=== PATIENT | female | born 1995 | race Caucasian/White ===

== ENCOUNTER 2020-10-12 02:31 | Outpatient (CLI) | payer BC, SELFPAY ==
--- NOTE | 2020-10-12 | DI.US_ITS ---
EXAM: US OB 2-3 TRIMESTER CLINICAL HISTORY: SURVEY,Z34.02. TECHNIQUE: Transabdominal obstetrical ultrasound was performed. COMPARISON: No exams were available for comparison FINDINGS: There is a single viable intrauterine gestation with cardiac activity identified-165 bpm. Amniotic fluid: There is a normal amount of amniotic fluid. Placental location: The placenta is anterior grade 1,with no evidence of placenta previa.This is from the tip of the placenta to the internal cervical os is 4 centimetres on today's study. ANATOMY: A 3 vessel umbilical cord is seen. A four-chamber cardiac view was obtained. Right and left ventricular outflow tracts were imaged. There are no obvious abnormalities of the spinal column evident. There is no obvious abnormal ity of the anterior abdominal wall. stomach and urinary bladder are identified and there is no evidence of hydronephrosis. No abnormalities of the upper lip region are identified. No evidence of choroid plexus cysts i n the brain. Dating parameters place this at approximately 20 weeks and 2 days gestational age. BPD measures 20 weeks and 1 day HC measures 20 weeks and 2 days AC measures 20 weeks and 3 days FL measures 20 weeks and 2 days Estimated weight is 347 gm-0 pounds, 12 ounces Fetus is at the 73rd percentile on the Hadlock scale. IMPRESSION:: Single viable intrauterine gestation which is approximately 20 weeks and 2 days gestati onal age, implying an HAKAN of February 27, 2021. There are no obvious anomalies evident on today's study. The placenta is anterior with no evidence of placenta previa. There is a normal amount of amniotic fluid. DATA REPOSITORY:
== END 2020-10-12 02:51 ==
PROVIDERS: PCP Family Medicine; Visit Provider Family Medicine
DX: Z34.92 Encounter for supervision of normal pregnancy, unspecified, second trimester (principal)
CPT/HCPCS: 76805

== ENCOUNTER 2020-12-03 12:14 | Outpatient (CLI) | payer BC, SELFPAY ==
[2020-12-03 12:58] VITALS: BP 109/70; PULSE 88; TEMP 36.4
[2020-12-03 13:02] VITALS: BP 109/70; PULSE 88
[2020-12-03 13:22] VITALS: BP 109/70; PULSE 88; TEMP 36.4
[2020-12-03 13:25] VITALS: BP 109/70; PULSE 88; TEMP 36.4
--- NOTE | 2021-01-02 10:34 | W.OBNST ---
Date of service: 01/02/21 Time of Service: 10:36 NST Evaluation Reason for NST Reasons for Nonstress Test: DECREASED MOVEMENT Gestational Age Gestational Age in Weeks and Days: 27 Weeks and 2Days Test and Monitor Explained Test/Monitor Explained: Test Explained and Monitor Explained Vital Signs Blood Pressure: 109/70 Pulse: 88 Temperature: 97.6 F Urine Results Urine Protein: Negative Urine Ketones: Negative Urine Glucose: Negative Urine Blood: Negative NST Information Date on Monitor: 12/03/20 Time on Monitor: 13:02 Date off Monitor: 12/03/20 Time off Monitor: 13:24 Total Time on Monitor: 22 NST Interventions: PO Hydration NST Evaluation Patient States Movement: Present FHR Baseline: 150 Variability: Moderate 6-25 bpm Accelerations: 15x15 Decelerations: None NST Results: Reactive Note NST Note Note: Pt observed and reported and recorded movement. Reassurance given. NST Reviewed and Verified by: Kristen Garcia
[2021-01-02 10:35] VITALS: BP 109/70; PULSE 88; TEMP 36.4
== END 2020-12-03 13:32 | disposition home or self-care (01) ==
LOC: BCD 12:55 → OBS 12:56
PROVIDERS: PCP Family Medicine; Visit Provider Family Medicine
DX: O36.8130 Decreased fetal movements, third trimester, not applicable or unspecified (principal); Z3A.27 27 weeks gestation of pregnancy
CPT/HCPCS: 59025

== ENCOUNTER 2021-03-03 05:51 | Inpatient (IN) | payer BC, SELFPAY ==
[2021-03-03] VITALS (40 sets, daily range): BP systolic 67–125; BP diastolic 31–77; PULSE 61–139; RESP 14–18; TEMP 36.6–37.1; TEMPC 36.9; O2SAT 94–100; BMI 29.2
[2021-03-03 07:32] LABS: Source Nasal/Nares
[2021-03-03 08:51] LABS: COVID-19 PCR Negative (Negative)
--- NOTE | 2021-03-03 08:55 | HPE_ITS ---
Date of service: 03/03/21 Time of Service: 08:55 Assessment and Plan Assessment and plan (1) : Status: Acute Assessment and plan: 25y in active labor, Rh- recieved rhogam at 28 weeks. Uncomplicated , labor began at 12am, membranes intact. Anticipate uncomplicated . She is requesting epidural so will begin process for that. She is up and walking in the mean time. Qualifiers: Weeks of gestation: 40 weeks Qualified Code(s): Z3A.40 - 40 weeks ge station of (2) Rh negative state in antepartum period: Status: Acute Assessment and plan: see above OB-HPI Labor/Delivery History of Present Illness Reason for Visit: RULE OUT LABOR Chief Complaint: Uterine Contractions. HAKAN Calculator Estimated Delivery Date Method Current WG Current Estimate 03/02/21 LMP (Certain) 40w 1d History of Present Expected Delivery Route/Plan 25y with GBS- Rh- RI HepB- at 40.1w with uncomplicated . Labor began at approximately midnight with contractions every 8-10 min, now at every 3-4min. Cervix yesterday in clinic was 1.5/30/-2 and has now progressed to 4- 5cm/80/0. She is getting uncomfortable and is requesting epidural. Anticipate Review of Systems All systems reviewed & are unremarkable except as noted in HPI and below PFSH Social History Smoking risk assessment performed?: No History History 1 Para 0 Hx # Term Pregnancies Multiple births Hx # Pregnancies Ectopic pregnancies AB induced Hx Number of Living Children AB spontaneous Meds Allergies and Home Medications Allergies Allergy/AdvReac Type Severity Reaction Status Date / Time ethinyl estradiol Allergy Mild Verified 03/03/21 09:03 [From Aviane] levonorgestrel [From Aviane] Allergy Mild Verified 03/03/21 09:03 Exam Physical Exam Vital signs: Temp Pulse Resp BP Pulse Ox 36.8 C 86 14 99/65 L 98 03/03/21 07:37 03/03/21 07:37 03/03/21 07:37 03/03/21 07:37 03/03/21 06:17 Detailed Labor and Delivery Exam Dilation: 4.5 Effacement (%): 80 station: 0 Cervix position: anterior Consistency: soft Sandoval Score: Cervical Points Exam 0 1 2 3 Dilation Closed 1-2cm 3-4 cm 5-6cm Effacement 0-30% 40-50% 60-70% 80% Consistency Firm Medium Soft Station -3 -2 -1,0 +1,+2 Position Posterior Mid Anterior SANDOVAL Score(Cervical Ripeness Score): 11 Amniotic Membrane Status: Intact Monitor Mode: External Contraction Frequency(min): q3-4 Contraction Duration(sec): 60 Contraction Intensity: Mild/Moderate Fetus A Heart Rate Baseline: 150 Monitor Accelerations: 15 X 15 Monitor Decelerations: None Variability: Moderate (6-25 BPM) Presentation: Cephalic Categories: Category I Assessment Note: Category 1, reactive HEENT Exam HEENT Exam: Normal Respiratory Exam Respiratory Exam: Normal Cardiovascular Exam Cardiovascular Exam: Normal Abdominal Exam Abdominal Exam: Normal Neurological Exam Neurological Exam: Normal Results Results Group Beta Strep: Negative Blood Type: O- Rubella Status: Immune Varicella Immunity: Not Tested Risk Assessment Risk for Shoulder Dystocia Historical/Initial OB: NEGATIVE FOR: Pelvic Abnormality, Pre- BMI>30, Previous Shoulder Dystocia or Previous Macrosomia 40 Weeks: NEGATIVE FOR: EFW> 4500 gms, Maternal Weight Gain >40lb or Post Dates Increased Risk?: No Risk for Pre-Eclampsia Daily Dose ASA Indicated: No Yes, if one or more: NEGATIVE FOR: Hx Pre-E/Gest HTN, Chronic HTN, Multiple Gestation, Pre-gestational DM, Renal Disease, Systemic Lupus or APA Syndrome Yes, if 2 or more: POSITIVE FOR: Nulliparity; NEGATIVE FOR: Age>= 35 yrs, >10yr btwn pregnancies, BMI>30, ethinicty, Mother/Sister w/ Pre-E or Previous IUGR Risk for Post- Hemorrhage Initial: NEGATIVE FOR: Multiple Gestation, Previous PPH, Known Clotting Deficiency, Grand Multiparity or Anticoagulation At Risk?: No Counseled re: Active Management: Yes Risks Reviewed Risks Reviewed Upon Admission: Yes
[2021-03-03] MEDS: Lactated Ringers 500 ML IV (09:15)
[2021-03-03 09:22] LABS: HGB 13.2 g/dL (11.2-15.7); MCH 30.6 pg (27.0-33.0); MCHC 34.7 % (32.0-36.0); MCV 88.2 fL (80-95); MPV 10.1 fL (8.0-11.0); Platelet Count 165 10^3/uL (130-400); RBC 4.31 10^6/uL (3.93-5.22); RDW 12.2 % (11.7-14.6); RDW-SD 39.6 fL; WBC 14.99 10^3/uL (4.4-10.8)
[2021-03-03] MEDS: FentaNYL/ROPIvacaine 2 mcg/ml and 0.1% 200 ML CADD Cassette EP (10:43)
--- NOTE | 2021-03-03 10:50 | W.ANESPRE ---
General Info Date of Service Date Performed: 03/03/21 Height: 5 ft 1 in Weight: 70.307 kg Body Mass Index (BMI): 29.2 Meds Allergies and Home Medications Allergies Allergy/AdvReac Type Severity Reaction Status Date / Time ethinyl estradiol Allergy Mild Verified 03/03/21 09:03 [From Aviane] levonorgestrel [From Aviane] Allergy Mild Verified 03/03/21 09:03 Current Visit Medications: Current Medications Generic Name Dose Route Start Last Admin Trade Name Freq PRN Reason Stop Dose Admin Diphenhydramine HCl 25 mg 03/03/21 10:48 Diphenhydramine 50 Mg/Ml Vial IVP Q6H PRN PRN Persistent pruritis face/trunk Ephedrine Sulfate 5 mg 03/03/21 10:48 Ephedrine 50 Mg/Ml Vial IVP DIRECTED PRN Fentanyl/Ropivacaine 200 ml 03/03/21 09:15 03/03/21 10:43 Fentanyl/Ropivacaine 2 Mcg/Ml And 0.1% 200 Ml Cadd Cassette EP 200 ml DIRECTED [place] Administration Fentanyl/Ropivacaine 200 ml 03/03/21 11:00 Fentanyl/Ropivacaine 2 Mcg/Ml And 0.1% 200 Ml Cadd [place]ette EP DIRECTED [place] Sodium Chloride 500 mls @ 0 mls/hr 03/03/21 08:52 Saline 500ml Bag IV PRN PRN As Directed Ringer's Solution 1,000 mls @ 125 mls/hr 03/03/21 09:00 IV INFUSION [place] Ringer's Solution 250 mls @ 500 mls/hr 03/03/21 10:48 IV 03/03/21 11:17 BOLUS ONE Naloxone HCl 2 mg/ Sodium 500 mls @ 8.788 mls/hr 03/03/21 10:48 Chloride IV INFUSION PRN pruritis 0.5 MCG/KG/HR Nalbuphine HCl 5 mg/ Sodium 50.5 mls @ 100 mls/hr 03/03/21 10:48 Chloride IVPB Q3H PRN PRN Pruritis IV Miscellaneous Supplies 1 each 03/03/21 09:00 Iv Access IV DIRECTED [place] Miscellaneous 0 each 03/03/21 10:48 Patch Removal TD 03/03/21 10:49 DIRECTED ONE Naloxone HCl 0 mg 03/03/21 10:48 Naloxone 0.4 Mg/Ml Vial IVP DIRECTED PRN Ondansetron HCl 4 mg 03/03/21 10:48 Ondansetron 4 Mg/2 Ml Vial IVP Q6H PRN PRN Nausea Scopolamine HBr 1.5 mg 03/03/21 10:48 Scopolamine 1 Mg/3 Days Patch TD 03/03/21 10:49 NOW ONE Sodium Chloride 0 ml 03/03/21 08:52 Normal Saline Flush 10 Ml Syr IVP PRN PRN PFSH Active Problems Active Problems: Problem Status Onset Code Rh negative state in antepartum period O26.899, Z67.91 Z34.90 Prental History History 1 Para 0 Hx # Term Pregnancies Multiple births Hx # Pregnancies Ectopic pregnancies AB induced Hx Number of Living Children AB spontaneous Vital Signs and Lab Results Vital Signs Most Recent Vital Signs in EMR: Most Recent Vital Signs Temp Pulse Resp BP Pulse Ox 36.8 C 66 14 101/58 L 100 03/03/21 07:37 03/03/21 10:48 03/03/21 07:37 03/03/21 10:45 03/03/21 10:48 Lab Results Result Diagrams: 03/03/21 09:12 Blood Type / Crossmatch: Patient ABO/Rh O Negative 03/03/21 09:12 03/03/21 Antibody Screen Positive 03/03/21 09:12 03/03/21 Complete Blood Count: White Blood Count 14.99 10^3/uL (4.4-10.8) H 03/03/21 09:12 03/03/21 Red Blood Count 4.31 10^6/uL (3.93-5.22) 03/03/21 09:12 03/03/21 Hemoglobin 13.2 g/dL (11.2-15.7) 03/03/21 09:12 03/03/21 Hematocrit 38.0 % (36.0-46.0) 03/03/21 09:12 03/03/21 Platelet Count 165 10^3/uL (130-400) 03/03/21 09:12 03/03/21 Complete Metabolic Panel: No Data to Display Liver Function Panel: No Data to Display Coagulation Panel: No Data to Display Cardiac Panel: No Data to Display Arterial Blood Gas: No Data to Display Venous Blood Gas: No Data to Display Pancreas Panel: No Data to Display Thyroid Panel: No Data to Display Infectious Disease: Coronavirus (COVID-19)(PCR) Negative (Negative) 03/03/21 07:24 03/03/21 Coronavirus 2019 Source Nasal/nares 03/03/21 07:24 03/03/21 Blood Cultures: No Data to Display Toxicology Panel: No Data to Display Panel: No Data to Display Anesthesia Assessment and Plan Anesthesia History Personal History: No History of Anesthesia Complications Family History: No Family History of Anesthesia Complications Exercise Tolerance Exercise Tolerance: Metabolic Equivalents>4 Pertinent Negatives Pertinent Negatives: No Symptoms of GERD Cardiac & Pulmonary Exam Cardiac Exam: Normal S1/S2 Heart Sounds Pulmonary Exam: Clear Bilateral Breath Sounds Airway Exam Known Difficult Airway: No Mallampati Class: 2 Mouth Opening: Normal (> 3cm) Thyromental Distance: Greater than 3 cm Neck Range of Motion: Full ROM Neck Circumference: Normal Teeth Condition: Normal Dentition ASA Classification ASA Score: ASA 2 Emergency Case?: No NPO Status NPO Status: NPO Clears >2 hours, Solids >8 hours Status Status: Per Patient Anesthesia Plan Resuscitation Status: Full Code Anesthesia Technique: Epidural Anesthesia Airway Planned: Natural Airway Pain Management: Surgeon and patient request nerve block Monitors Used: Standard Monitors
--- NOTE | 2021-03-03 10:50 | W.ANESNEU ---
Epidural/Spinal Catheter Date Performed: 03/03/21 Procedure Start: 10:18 Procedure Stop: 10:32 Requesting Provider: Hernán Mckeon Procedure Location: Obstetrics (303) Reason Performed: Labor Epidural Standard Monitors Applied: Blood Pressure and SpO2 Patient Position: Sitting Sedation Given (Indicate Dose Given): No Sedation given Patient Mental Status: Awake Sterility: Hand Hygiene, Surgical Cap, Surgical Mask, Sterile Gloves, Sterile Drape/Sheet and Chlorhexidine Procedure Location: L3-L4 Interspace Epidural Needle: Tuohy 17 Guage Needle Length: 3.5 Inch Needle Approach: Midline Epidural Procedure: Skin Prepped, 1% Lidocaine to skin and subcutaneous tissue with 25G needle, Tuohy Needle placed, RODRÍGUEZ to Saline Used, Epidural Catheter Placed, Negative Heme and Negative CSF Flow Catheter Placed?: Catheter Placed Test Dose (Indicate Dose Given): 3ml 1.5% Lidocaine with 1:200K Epinephrine Given and Negative Test Dose Loss of Resistance Depth (cm): 8 Catheter depth at skin (cm): 13 Dressing: Sorbaview Dressing Placed, Mastisol Used and Dressing reinforced with Tape Epidural Provider Bolus (Indicate Dose Given): None Given Additives (Indicate Dose Given ): None Infusion Medication: Medication Infusion Began Medication Infusion: Ropivacaine 0.1% with Fentanyl 2mcg/ml Maintenance Infusion Rate (ml/hour): 10 PCEA Bolus Dose (ml): 5 Block Level: T10 Paresthesia: Right Paresthesia Duration: Transient Ultrasound: Not Used Number of Attempts (See previous attempts in note section): 1 Procedure Tolerated: Patient tolerated well and Complications Encountered (Slight hypotension, corrected by laying supine) Procedure Outcome: Successful Performed By: Alli Reyes
--- NOTE | 2021-03-03 10:54 | W.PM.OBNL1 ---
Date of service: 03/03/21 Time of Service: 10:54 Pelvic Exam Dilation: 5 Effacement (%): 80 station: 0 Cervix Position: anterior Consistency: soft Vaginal Exam Presentation: Cephalic Contractions Monitor Mode: External Contraction Frequency(min): 5 Contraction Duration(sec): 60 Intensity: Mild/Moderate Fetus A Monitor: External (US) Heart Rate Baseline: 140 Presentation: Cephalic Variability: Moderate (6-25 BPM) Categories: Category I FHR Rhythm: Regular Characteristics: Normal Accelerations: 15 X 15 Decelerations: None Amniotic Membrane Status: Intact Assessment and Plan Assessment and plan (1) : Status: Acute Assessment and plan: Doing well, progressing slowly. Epidural in place and effective. Continue present management. Qualifiers: Weeks of gestation: 40 weeks Qualified Code(s): Z3A.40 - 40 weeks gestation of Objective Abnormal lab results 03/03/21 Range/Units 09:12 WBC 14.99 H (4.4-10.8) 10^3/uL Temp Pulse Resp BP Pulse Ox 36.8 C 69 14 97/55 L 100 03/03/21 07:37 03/03/21 10:49 03/03/21 07:37 03/03/21 10:49 03/03/21 10:48 Laboratory Results WBC 14.99 10^3/uL (4.4-10.8) H 03/03/21 09:12 RBC 4.31 10^6/uL (3.93-5.22) 03/03/21 09:12 Hgb 13.2 g/dL (11.2-15.7) 03/03/21 09:12 Hct 38.0 % (36.0-46.0) 03/03/21 09:12 MCV 88.2 fL (80-95) 03/03/21 09:12 MCH 30.6 pg (27.0-33.0) 03/03/21 09:12 MCHC 34.7 % (32.0-36.0) 03/03/21 09:12 RDW 12.2 % (11.7-14.6) 03/03/21 09:12 Plt Count 165 10^3/uL (130-400) 03/03/21 09:12 MPV 10.1 fL (8.0-11.0) 03/03/21 09:12 COVID-19 Source Nasal/nares 03/03/21 07:24 SARS-CoV-2 (PCR) Negative (Negative) 03/03/21 07:24 Patient ABO/Rh O Negative 03/03/21 09:12 Antibody Screen Positive 03/03/21 09:12 Subjective Patient Reports: No new Complaints Interval history since last seen: Leeann is doing well. She got her epidural and pain is now well controlled. She did have some dizziness with epidural but BP stable, symptoms now resolved. Interventions Pain Management Interventions: Epidural . Results Hemoglobin/Hematocrit: Hgb 13.2 g/dL (11.2-15.7) 03/03/21 09:12 Hct 38.0 % (36.0-46.0) 03/03/21 09:12 Abnormal Lab Findings: Abnormal Labs 03/03/21 09:12 WBC 14.99 H
--- NOTE | 2021-03-03 11:54 | W.PM.OBNL1 ---
Date of service: 03/03/21 Time of Service: 11:54 Pelvic Exam Dilation: 7 Effacement (%): 80 station: 0 Cervix Position: anterior Consistency: soft Vaginal Exam Presentation: Cephalic Contractions Monitor Mode: External Contraction Frequency(min): 5 Contraction Duration(sec): 60 Intensity: Moderate/Strong Fetus A Monitor: External (US) Heart Rate Baseline: 140 Presentation: Cephalic Variability: Moderate (6-25 BPM) Categories: Category I FHR Rhythm: Regular Characteristics: Normal Accelerations: 15 X 15 Decelerations: None Amniotic Membrane Status: Ruptured Assessment Note: Category 1, very active. AROM performed with clear fluid. Assessment and Plan Assessment and plan (1) : Status: Acute Assessment and plan: Doing well, making good progress. AROM performed with clear fluid. Epidural working well. Continue present management. Qualifiers: Weeks of gestation: 40 weeks Qualified Code(s): Z3A.40 - 40 weeks gestation of Objective Abnormal lab results 03/03/21 Range/Units 09:12 WBC 14.99 H (4.4-10.8) 10^3/uL Temp Pulse Resp BP Pulse Ox 36.8 C 65 14 104/61 100 03/03/21 07:37 03/03/21 11:35 03/03/21 07:37 03/03/21 11:35 03/03/21 10:48 Laboratory Results WBC 14.99 10^3/uL (4.4-10.8) H 03/03/21 09:12 RBC 4.31 10^6/uL (3.93-5.22) 03/03/21 09:12 Hgb 13.2 g/dL (11.2-15.7) 03/03/21 09:12 Hct 38.0 % (36.0-46.0) 03/03/21 09:12 MCV 88.2 fL (80-95) 03/03/21 09:12 MCH 30.6 pg (27.0-33.0) 03/03/21 09:12 MCHC 34.7 % (32.0-36.0) 03/03/21 09:12 RDW 12.2 % (11.7-14.6) 03/03/21 09:12 Plt Count 165 10^3/uL (130-400) 03/03/21 09:12 MPV 10.1 fL (8.0-11.0) 03/03/21 09:12 COVID-19 Source Nasal/nares 03/03/21 07:24 SARS-CoV-2 (PCR) Negative (Negative) 03/03/21 07:24 Patient ABO/Rh O Negative 03/03/21 09:12 Antibody Screen Positive 03/03/21 09:12 Antibody Identification Anti-D 03/03/21 09:12 Subjective Patient Reports: New Complaints Interval history since last seen: Leeann is having some nausea but otherwise doing well. Clear fluids helpful. Results Hemoglobin/Hematocrit: Hgb 13.2 g/dL (11.2-15.7) 03/03/21 09:12 Hct 38.0 % (36.0-46.0) 03/03/21 09:12 Abnormal Lab Findings: Abnormal Labs 03/03/21 09:12 WBC 14.99 H
--- NOTE | 2021-03-03 13:53 | W.PM.OBNL1 ---
Date of service: 03/03/21 Time of Service: 13:53 Pelvic Exam Dilation: 8 Effacement (%): 90 station: 0 Cervix Position: anterior Consistency: soft Vaginal Exam Presentation: Cephalic Contractions Monitor Mode: External Contraction Frequency(min): 5 Contraction Duration(sec): 60 Intensity: Moderate Fetus A Monitor: External (US) Heart Rate Baseline: 140 Presentation: Cephalic Variability: Moderate (6-25 BPM) Categories: Category I FHR Rhythm: Regular Characteristics: Normal Accelerations: 15 X 15 Decelerations: None Amniotic Membrane Status: Ruptured Assessment and Plan Assessment and plan (1) : Status: Acute Assessment and plan: Doing well, progressing as expected. Epidural has switched sides,but still effective. Continue present management FHT category 1, reactive. Qualifiers: Weeks of gestation: 40 weeks Qualified Code(s): Z3A.40 - 40 weeks gestation of Objective Abnormal lab results 03/03/21 Range/Units 09:12 WBC 14.99 H (4.4-10.8) 10^3/uL Temp Pulse Resp BP Pulse Ox 36.8 C 65 14 104/61 100 03/03/21 07:37 03/03/21 11:35 03/03/21 07:37 03/03/21 11:35 03/03/21 10:48 Laboratory Results WBC 14.99 10^3/uL (4.4-10.8) H 03/03/21 09:12 RBC 4.31 10^6/uL (3.93-5.22) 03/03/21 09:12 Hgb 13.2 g/dL (11.2-15.7) 03/03/21 09:12 Hct 38.0 % (36.0-46.0) 03/03/21 09:12 MCV 88.2 fL (80-95) 03/03/21 09:12 MCH 30.6 pg (27.0-33.0) 03/03/21 09:12 MCHC 34.7 % (32.0-36.0) 03/03/21 09:12 RDW 12.2 % (11.7-14.6) 03/03/21 09:12 Plt Count 165 10^3/uL (130-400) 03/03/21 09:12 MPV 10.1 fL (8.0-11.0) 03/03/21 09:12 COVID-19 Source Nasal/nares 03/03/21 07:24 SARS-CoV-2 (PCR) Negative (Negative) 03/03/21 07:24 Patient ABO/Rh O Negative 03/03/21 09:12 Antibody Screen Positive 03/03/21 09:12 Antibody Identification Anti-D 03/03/21 09:12 Subjective Patient Reports: No new Complaints Results Hemoglobin/Hematocrit: Hgb 13.2 g/dL (11.2-15.7) 03/03/21 09:12 Hct 38.0 % (36.0-46.0) 03/03/21 09:12 Abnormal Lab Findings: Abnormal Labs 03/03/21 09:12 WBC 14.99 H
[2021-03-03] MEDS: Lactated Ringers 1,000 ML 125 ML IV (13:56)
[2021-03-03] MEDS: Oxytocin/Normal Saline 30 UNIT/500 ML BAG 95 UNITS IV (17:41)
--- NOTE | 2021-03-03 17:57 | W.ANESPOSTOP ---
Postoperative Evaluation Date, Time and Location Date Performed: 03/03/21 Time Performed: 17:57 Patient Location: Obstetrics Vital Signs Most Recent Imported Vital Signs: Most Recent Vital Signs Temp Pulse Resp BP Pulse Ox 36.7 C 139 H 16 107/69 100 03/03/21 15:31 03/03/21 17:43 03/03/21 15:31 03/03/21 17:43 03/03/21 10:48 Most Recent Manually Entered Vital Signs: Adult Blood Pressure: 111/56 Heart Rate: 111 Respirations: 16 Oxygen Saturation (%): 98 Temperature (C): 36.9 C Pain Score (0-10 Scale): 0 Pain Score Most Recent Pain Score: Most Recent Pain Score Pain Level [Lower Abdomen] 0 03/03/21 15:19 Assessment Mental Status: Awake (Alert & Oriented to Patient Baseline) Airway and Respiratory Function: Patent airway with normal (patient baseline) respiratory exam Cardiovascular Function: Hemodynamically Stable Hydration Status: Adequately Hydrated Nausea & Vomiting: No Nausea or Vomiting Pain: Pt. Denies Any Pain Peripheral Nerve Block: Other (Epidural infusion discontinued and appropriatley resolving )
--- NOTE | 2021-03-03 18:21 | OBVDS_ITS ---
Date of service: 03/03/21 Time of Service: 18:21 OB Labor/ Delivery Information Baby A Delivery Delivery Method: Spontaneaous Presentation: Cephalic Cephalic Position: Vertex Vertex Position: Left Occipital Anterior Breech Position: N/A Cord Description-Baby A: 3 Vessels Amniotic Fluid: Clear Delivery Outcome: Liveborn Infant Transferred: Remains with Mother Note: 25y [id number] sp with term male infant, RI Rh- GBS-. Uncomplicated pre gnancy and labor. She progressed well with category 1 strip throughout. Short second stage with strong epidural. Baby decended quickly and delivered RENATE. Vigorous on the perineum with apgars of 9 and 10. He was placed immediately on moms chest. Cord was clamped after one minute and cut by dad. Placenta delivered spontaneously after 4 minutes. Due to the speed of babies decent, she did sustain a 4th degree laceration. This was kindly repaired by Dr Chavez, see separate note. Mom is otherwise doing very well. Would like to breastfeed. History of breast reduction, so she is aware this may present a problem but she was able to express colostrum already. Anticipate routine post care. Discussed stool softeners due to 4th degree. Labor/Delivery Information Number of Babies in Womb: 1 Steroids Given: None Reason Steroids Not Administered: N/A Group Beta Strep: Negative Rubella Status: Immune Blood Type: O- Varicella Immunity: Not Tested Medication in Delivery: epidural Born En Route: No Maternal Complications: None Shoulder Dystocia: No Stages of Labor Complete Dilatation Date: 03/03/21 Complete Dilatation Time: 17:13 Delivery Date-Baby A: 03/03/21 Delivery Time-Baby A: 17:37 Labor Stage 2 Duration: 24 minutes Placenta Delivery Date-Baby A: 03/03/21 Placenta Delivery Time-Baby A: 17:41 Labor-Stage 3 Duration: 4 minutes Placenta Cultured: No Placenta Status: Delivered Baby A Infant Gender: Male Gestational Status: Term (39-41.6 wks) Gestational Age in Weeks/Days: 40 Weeks and 1 Days Score-1 Minute Interval(Baby A) Heart Rate-1 minute: 100 BPM or Greater Respiratory Effort- 1 minute: Spontaneous/Strong Cry Muscle Tone-1 minute: Active Movement Reflex Response-1 minute: Prompt Response Color-1 minute: Bluish Hands or Feet Total Score-1 minute: 9 Score-5 Minute Interval(Baby A) Heart Rate- 5 minute: 100 BPM or Greater Respiratory Effort-5 minute: Spontaneous/Strong Cry Muscle Tone-5 minute: Active Movement Reflex Response-5 minute: Prompt Response Color-5 minute: Seffner/No Cyanosis Total Score- 5 minute: 10 Interventions Repair of Laceration Laceration Extension: Fourth Degree . Sponge Count Correct: Yes , Sharp Count Correct: Yes . Laceration Repair Note: please see note by Dr Chavez who performed repair.
--- NOTE | 2021-03-03 18:34 | OBCE_ITS ---
Date of service: 03/03/21 Time of Service: 18:34 History of Present Illness History of Present Illness Chief Complaint: Need for repair post Consults Consult date: 03/03/21 Requesting physician: Hernán Mckeon [facility] Social History Smoking/Tobacco Use Status: Never Smoking risk assessment performed?: Yes Alcohol Intake: never Substance use type: does not use Do you feel safe at home: Yes Do you feel safe in your relationship?: Yes History History 1 Para 0 Hx # Term Pregnancies Multiple births Hx # Pregnancies Ectopic pregnancies AB induced Hx Number of Living Children AB spontaneous Results Last Vital Signs Temp 98.2 F 03/03/21 17:59 Pulse 131 H 03/03/21 18:28 Resp 16 03/03/21 17:59 BP 94/56 L 03/03/21 18:28 Pulse Ox 100 03/03/21 10:48 Labs Result diagrams: 03/03/21 09:12 Labs: Laboratory Results - last 24 hr 03/03/21 03/03/21 03/03/21 07:24 09:12 09:12 WBC 14.99 H RBC 4.31 Hgb 13.2 Hct 38.0 MCV 88.2 MCH 30.6 MCHC 34.7 RDW 12.2 Plt Count 165 MPV 10.1 COVID-19 Source Nasal/nares SARS-CoV-2 (PCR) Negative Patient ABO/Rh O Negative Antibody Screen Positive Antibody Identification Anti-D Laceration Repair Procedure performed by: Robyn Chavez Explained risks and benefits to parent: Yes Informed consent given: Yes Location: 4th degree perineal laceration Sedation: No Anesthesia: other (epidural in place) Patient tolerated procedure: well Text: Kindly asked to evaluate the vaginal laceration after normal spontaneous vaginal delivery. Patient had dense epidural with good pain contr ol. On examination was found to have 1/4 degree perineal laceration. This was repaired in a standard fashion. Initial approximation of the perineal body was performed with 3-0 Vicryl suture in a systematic fashion around the musculature. The rectal mucosa was then reapproximated with 4-0 Vicryl suture in a subcuticular fashion the remainder of the repair was performed in the usual sterile fashion. Approximation was well achieved hemostasis was noted. On inspection there was noted to be a small superficial right first-degree labial laceration which was hemostatic and not repaired. Sponge lap and needle counts were correct. Patient tolerated procedure without difficulty. Ice pack was placed on the perineum.
[2021-03-03] MEDS: Docusate Sodium 100 MG CAP PO (20:30)
--- NOTE | 2021-03-03 23:01 | NUR.NOTE ---
at approximately 2212 pt requesting to get up to bathroom for the second time since delivery @1737. Pt BP 96/60 and HR 130 with pt sitting at bedside. Pt stated she felt good and really wanted to get out of bed. RN called second RN to bedside. After a minute of dangling feet off bed, pt stated she was ready to stand up. Pt walked slowly to bathroom with 2 RN assisting her. Once in the bathroom pt stated she was dizzy and proceeded to lose consciousness. 2 RN slowly assisted pt to the floor in sitting position. Approximately 2 seconds later pt regained consciousness. Once pt conscious, 1 RN stayed with pt while 2nd RN paged nursing production supervisor trainee to unit, as well as left a message with MD. Once production supervisor trainee on floor, 3 RNs able to get pt in wheelchair and back in bed. When at bedside RN checked BP while pt supine 107/68, HR 85. RN had pt stand up and checked bp 67/31 and HR 138. Pt fundus was displaced to the right upon exam. RN called MD Mckeon again at approx 2240 and gave verbal report on situation. RN began bolus of 2nd bag of pitocin and started a 500cc bolus of LR per Md verbal order. RN also placed garcia catheter upon starting fluids. Once garcia was placed, large amounts of clear urine began to fill the bag, RN called MD Mckeon with update on output. RN stopped LR bolus at 2244 and slowed pitocin rate to 95ml/hr. Garcia emptied for 900cc. Pt stable at this time. Nursing Note:
[2021-03-03] MEDS: Acetaminophen 325 MG TAB 650 MG PO (23:39)
[2021-03-03] MEDS: Ibuprofen 600 MG TAB PO (23:39)
[2021-03-04] MEDS: Normal Saline Flush 10 ML SYR IVP (01:40)
[2021-03-04 05:11] VITALS: BP 106/64; PULSE 84; RESP 16; TEMP 36.8; O2SAT 97
[2021-03-04 07:44] LABS: MCHC 35.1 % (32.0-36.0); MCV 88.4 fL (80-95); MPV 10.4 fL (8.0-11.0); Platelet Count 174 10^3/uL (130-400); RBC 3.03 10^6/uL (3.93-5.22); RDW 12.4 % (11.7-14.6); RDW-SD 39.8 fL; WBC 20.66 10^3/uL (4.4-10.8)
[2021-03-04] MEDS: Ibuprofen 600 MG TAB PO ×3 (07:47→23:12)
[2021-03-04] MEDS: Acetaminophen 325 MG TAB 650 MG PO ×4 (07:47→23:12)
[2021-03-04 07:56] LABS: HCT 26.8 % (36.0-46.0); HGB 9.4 g/dL (11.2-15.7)
[2021-03-04 08:15] VITALS: BP 103/66; PULSE 106; RESP 16; TEMP 36.5; O2SAT 97
--- NOTE | 2021-03-04 09:32 | W.PM.OBPNV1 ---
Date of service: 03/04/21 Time of Service: 09:32 Assessment and Plan Assessment and plan (1) Term delivered: Status: Acute Assessment and plan: 25y [id number] sp with 4th degree laceration doing well on PPD 1. She did have significant orthostatic hypotension last night with a syncopal episode. Uterus was at umbilicus and deviated to the right, bladder full. Sweet was placed and a second dose of pitocin administered with additional IV fluids. This did improve her BP and symptoms. She feels back to normal this morning. Is voiding, passing flatus. Working on nursing. Will work with today. Baby was Rh+ so Leeann will receive Rhogam today. Will do BID colace due to 4th degree and add Iron due to anemia. Otherwise routine post care. Anticipate DC home tomorrow. (2) anemia: Status: Acute Assessment and plan: see above (3) Syncope: Status: Chronic Assessment and plan: see above Qualifiers: Syncope type: vasovagal syncope Qualified Code(s): R55 - Syncope and collapse (4) Rh negative state in antepartum period: Status: Acute Assessment and plan: see above Subjective Subjective Interval history: Leeann struggled with dizziness and sycope last night. Sweet was placed and got 800cc out when uterus was deviated to the right. LR bolus and second bag of pitocin administered. She did feel better after that and feels significantly better this morning. Hemoglobin has dropped from 13 to 9 this morning. Patient comments: Pain well controlled, Tolerating diet and Flatus present Norphlet baby status: Doing well, Nursing well (some difficulty with latch) and Strong Bonding Observed feeding status: Exclusively breast feeding Exam Physical Exam Vital signs: Temp Pulse Resp BP Pulse Ox 36.5 C 106 H 16 103/66 97 03/04/21 08:15 03/04/21 08:15 03/04/21 08:15 03/04/21 08:15 03/04/21 08:15 Vital Signs Reviewed: Yes Constitutional Constitutional: no acute distress HEENT Exam HEENT Exam: Normal Respiratory Exam Respiratory Exam: Normal Cardiovascular Exam Cardiovascular Exam: Normal Fundal Exam Fundus: Below Umbilicus and Firm Extremities Exam Extremity Exam: Normal Neurological Exam Neurological Exam: Normal Psychiatric Exam Psychiatric Exam: Normal Results Hemoglobin/Hematocrit: Hgb 9.4 g/dL (11.2-15.7) L D 03/04/21 06:45 Hct 26.8 % (36.0-46.0) L D 03/04/21 06:45 Abnormal Lab Findings: Abnormal Labs 03/03/21 03/04/21 09:12 06:45 WBC 14.99 H 20.66 H D RBC 3.03 L Hgb 9.4 L D Hct 26.8 L D
[2021-03-04] MEDS: Ferrous Sulfate 325 MG TAB PO (10:29)
[2021-03-04] MEDS: Docusate Sodium 100 MG CAP PO (10:29)
[2021-03-04 20:16] VITALS: BP 101/64; PULSE 95; RESP 18; TEMP 36.6; O2SAT 98
[2021-03-05] MEDS: Acetaminophen 325 MG TAB 650 MG PO (08:01)
[2021-03-05] MEDS: Ibuprofen 600 MG TAB PO (08:02)
[2021-03-05] MEDS: Ferrous Sulfate 325 MG TAB PO (08:02)
[2021-03-05] MEDS: Docusate Sodium 100 MG CAP PO (08:02)
[2021-03-05 08:08] VITALS: BP 100/63; PULSE 95; RESP 18; TEMP 36.5; O2SAT 98
--- NOTE | 2021-03-05 09:09 | DSE_ITS ---
Date of service: 03/05/21 Time of Service: 09:09 DS: Diagnosis Discharge Diagnosis (1) Term delivered: Status: Acute (2) anemia: Status: Acute (3) Syncope: Status: Chronic (4) Rh negative state in antepartum period: Status: Acute Discharge Plan Disposition Patient Disposition: HOME Condition: Good Discharge Details Reason For Visit: LABOR Admit Date/Time: 03/03/21 08:54 Admit Provider: Rodrigo Goddard Attending Provider: Hernán Mckeon Primary Care Provider: Hernán Mckeon Home Meds and New Rx's Prescriptions: No Action albuterol 90 mcg/actuation Aerosol 90 mcg INHALATION Q4H PRN PRNRF: 0 albuterol sulfate 90 mcg/actuation HFA aerosol inhaler 1 puff INHALATION Q4H PRN PRNRF: 0 Vitamin Tablet 1 tab PO DAILY RF: 0 Discharge Instructions Stand Alone Forms: BC Instructions, BC Post Vaginal Deliver Activity:: Activity as Tolerated Equipment/Supplies:: No Equipment Needed Diet:: As Tolerated Discharge Orders Discharge Orders: Discharge Order (Routine); Ordered 03/05/21 Ordered By: Hernán Mckeon OB:DS Summary Summary Vaginal Delivery Method: Spontaneaous Laceration Description: Perineal Laceration Extension: Fourth Degree Contraception Discussed Contraception Discussed: Yes Contraceptive Plan: Control Pill/Patch, Gender-Baby A: Male weight: 3850 g Disposition of Baby A: Home Status at Discharge Functional status at discharge: independent ambulation Overall status at discharge: patient is back to baseline Mental Status: mental status grossly normal Speech and Movement: speech and movement normal Mood: congruent mood Affect: normal affect Time Spent with Patient providing and/or coordinating discharge services: Less than 30 minutes Hospital Course 25y [id number] with RH- RI GBS- sp with 4th degree laceration. Uncomplicated labor and delivery other than 4th degree repaired by Dr Chavez. She has been voiding, passing flatus, no BM yet. Taking docusate BID as well as Iron supplement, recommend plant based on discharge to prevent constipation. She did have some dizziness and a syncopal episode the night after delivery but none since, vitals stable. Up and about without incident now. Plans minipill for contraception. Nursing going well with nipple shield. Pain well controlled. DC home today. Follow up in 6 weeks. Exam Physical Exam Vital signs: Temp Pulse Resp BP Pulse Ox 36.5 C 95 H 18 100/63 98 03/05/21 08:08 03/05/21 08:08 03/05/21 08:08 03/05/21 08:08 03/05/21 08:08 Vital Signs Reviewed: Yes Constitutional Constitutional: no acute distress Breast Exam Bilateral: Breast Exam: Normal Nipple Exam: Normal (flat) Respiratory Exam Respiratory Exam: Normal Cardiovascular Exam Cardiovascular Exam: Normal Fundal Exam Fundus: Below Umbilicus and Firm Extremities Exam Extremity Exam: Normal Neurological Exam Neurological Exam: Normal Psychiatric Exam Psychiatric Exam: Normal [facility] Social History Smoking/Tobacco Use Status: Never Smoking risk assessment performed?: Yes Alcohol Intake: never Substance use type: does not use Do you feel safe at home: Yes Do you feel safe in your relationship?: Yes History History 1 Para 0 Hx # Term Pregnancies Multiple births Hx # Pregnancies Ectopic pregnancies AB induced Hx Number of Living Children AB spontaneous DS: Data Vitals/I&O Vitals and I&O: Vital Signs Temperature 36.5 C 03/05/21 08:08 Pulse 95 H 03/05/21 08:08 Pulse Rhythm Regular 03/04/21 20:16 Respiratory Rate 18 03/05/21 08:08 Respiratory Depth Normal 03/04/21 20:16 Blood Pressure 100/63 03/05/21 08:08 Blood Pressure Mean 75 03/05/21 08:08 Pulse Oximetry 98 03/05/21 08:08 Oxygen Delivery Method Room Air 03/03/21 07:37 Oxygen Flow Rate 0 03/03/21 07:37 Pain Level 4 03/04/21 23:12 Comment 03/03/21 22:41 Intake & Output 03/04/21 03/04/21 03/05/21 11:59 23:59 11:59 Intake Total 2250 / 3400 1150 / 3400 Output Total 2100 / 3225 1125 / 3225 Balance 150 / 175 25 / 175 Intake: IV 1500 / 1500 Oral 750 / 1900 1150 / 1900 Output: Urine 2100 / 3225 1125 / 3225 Other: Urine Color Yellow Yellow Urine Appearance Clear Clear Urine Odor None Data Completed and Pending Labs on day of discharge: Labs from last 24 hours 03/03/21 09:12 Patient ABO/Rh O Negative Antibody Screen Positive Antibody Identification Anti-D Unit Expiration Date 06/04/22 Product Lot # [id number]
== END 2021-03-05 11:30 | disposition home or self-care (01) | DRG 768 ==
PROVIDERS: Admitting Provider Family Medicine; PCP Family Medicine; Visit Provider Family Medicine
DX: O36.0930 Maternal care for other rhesus isoimmunization, third trimester, not applicable or unspecified (principal); Z37.0 Single live birth; O70.3 Fourth degree perineal laceration during delivery; Z3A.40 40 weeks gestation of pregnancy; O26.53 Maternal hypotension syndrome, third trimester; O90.81 Anemia of the puerperium; D64.9 Anemia, unspecified
CPT/HCPCS: 36415; 85027; 85461; 86850; 86900; 86901; 87635; 90384; 86870; G0378; J2790